=== PATIENT | female | born 1970 | race Two or more races ===

== ENCOUNTER 2017-03-26 09:11 | Outpatient (CLI) | payer OTHER ==
[~2017-03-26 09:11] MED LIST: SYNTHROID100 MCG
== END 2017-03-26 09:17 | disposition home or self-care (01) ==
LOC: SONOGRAMA 09:11
DX: E04.1 Nontoxic single thyroid nodule (principal)

== ENCOUNTER 2024-03-30 19:52 | Emergency (ER) | payer OTHER ==
[~2024-03-30] VITALS: Ht 162.6 cm; Wt 63.0 kg
[~2024-03-30 19:52] MED LIST changes: +BUPROPION XL300 MG PO; +CELEBREX200MG PO; +CLONAZEPAM1 MG PO; +METAXALONE800 MG PO
[2024-03-30] MEDS ORDERED: FAMOTIDINE/PF 20 MG in 0.9 % SODIUM CHLORIDE 8 ML IV PUSH STA (21:03)
[2024-03-30] MEDS ORDERED: FAMOTIDINE/PF 20 MG/2 ML VIAL ONE (21:09)
[2024-03-30] MEDS ORDERED: ONDANSETRON HCL 2 MG/ML VIAL ONE (21:09)
[2024-03-30] MEDS ORDERED: 0.9 % SODIUM CHLORIDE 1,000 ML IV SCH (21:15)
[2024-03-30] MEDS ORDERED: METOCLOPRAMIDE HCL 10 MG in DEXTROSE 5 % IN WATER 50 ML IV ONE (21:15)
[2024-03-30] MEDS ORDERED: METOCLOPRAMIDE HCL 5 MG/ML VIAL ONE (21:15)
[2024-03-30] MEDS ORDERED: ONDANSETRON HCL 2 MG/ML VIAL IV ONE (21:15)
[2024-03-30 22:05] LABS: HEMATOCRIT 41.1 % (36.0-45.00); HEMOGLOBIN 13.7 g/dL (12.0-15.00); MEAN CELL VOLUME 91.5 fL (80.00-100.00); MEAN CORPUSCULAR HEMOGLOBIN 30.5 pg (27.00-32.0); MEAN CORPUSCULAR HGB CONC 33.4 g/dl (32.0-36.0); PLATELET COUNT 391 K/uL (150-450); RED BLOOD COUNT 4.49 M/uL (4.00-6.00); RED CELL DISTRIBUTION WIDTH 13.7 % (11.5-14.5)
[2024-03-30 22:26] LABS: BILIRUBIN TOTAL 0.39 mg/dL (0.3-1.2); CALCIUM 9.7 mg/dL (8.5-10.1); CREATININE SERUM 0.58 mg/dL (0.55-1.02); GFR 108.33; GLOBULINA 3.8 G/DL (2.4-3.5); POTASSIUM 4.02 mEq/L (3.5-5.1); TOTAL PROTEIN 7.8 gm/dL (6.4-8.2)
[2024-03-30] MEDS ORDERED: ONDANSETRON ODT8 MG PO (23:00)
[2024-03-30] MEDS ORDERED: PEPCID AC20 MG PO (23:00)
== END 2024-03-30 23:13 | disposition home or self-care (01) ==
LOC: ER 19:55
PROVIDERS: General Practice
DX: K52.9 Noninfective gastroenteritis and colitis, unspecified (principal)